=== PATIENT | male | born 1970 | race Caucasian/White ===

== ENCOUNTER 2018-01-15 22:02 | Emergency (ER) | payer BC ==
[~2018-01-15] VITALS: Ht 175.3 cm; Wt 97.3 kg
[2018-01-15] MEDS ORDERED: HYDROcodone/APAP 5/325 TABLET PO PRN (23:00)
[2018-01-15] MEDS ORDERED: HYDROcodone/APAP 5/325 TABLET ONE (23:13)
[2018-01-15 23:15] VITALS: BP 190/127
== END 2018-01-16 00:29 | disposition home or self-care (01) ==
LOC: ED 01-16 00:08
DX: S29.011A Strain of muscle and tendon of front wall of thorax, initial encounter (principal); I10 Essential (primary) hypertension; Z87.891 Personal history of nicotine dependence; W01.10XA Fall on same level from slipping, tripping and stumbling with subsequent striking against unspecified object, initial encounter; Y93.89 Activity, other specified; Y92.009 Unspecified place in unspecified non-institutional (private) residence as the place of occurrence of the external cause; Y99.8 Other external cause status
CPT/HCPCS: 93005; 99284